=== PATIENT | female | born 1960 ===

== ENCOUNTER 2023-11-17 06:34 | Day surgery (SDC) | payer OTHER ==
[2023-10-30 09:40] LABS: HEMATOCRIT 36.9 % (36.0-45.00); HEMOGLOBIN 12.3 g/dL (12.0-15.00); MEAN CELL VOLUME 95.1 fL (80.00-100.00); MEAN CORPUSCULAR HEMOGLOBIN 31.7 pg (27.00-32.0); MEAN CORPUSCULAR HGB CONC 33.3 g/dl (32.0-36.0); PLATELET COUNT 257 K/uL (150-450); RED BLOOD COUNT 3.88 M/uL (4.00-6.00); RED CELL DISTRIBUTION WIDTH 14.9 % (11.5-14.5); URINE APPEARANCE Clear; URINE BILIRRUBIN Negative (NEGATIVE); URINE BLOOD Negative; URINE COLOR Yellow; URINE GLUCOSE Negative (NEGATIVE); URINE LEUKOCYTE Negative; URINE NITRATE Negative; URINE PROTEIN Negative (NEGATIVE)
[2023-10-30 09:41] LABS: URINE BACTERIA 113.2 uL (0.0-1933); URINE EPITHELIAL CELLS 6.3 uL (0.0-38.8)
[2023-10-30 10:10] LABS: INR 0.97; PARTIAL THROMBOPLASTIN TIME 26.5 SECONDS (22.0-34.0); PROTHROMBIN TIME 10.2 SECONDS (9.0-11.5)
[2023-10-30 10:35] LABS: ALBUMIN 3.8 gm/dL (3.4-5.0); BILIRUBIN TOTAL 0.35 mg/dL (0.3-1.2); CALCIUM 9.3 mg/dL (8.5-10.1); CREATININE SERUM 0.56 mg/dL (0.55-1.02); GFR 109.34; GLOBULINA 3.2 G/DL (2.4-3.5); POTASSIUM 3.82 mEq/L (3.5-5.1)
[~2023-11-17] VITALS: Ht 152.4 cm; Wt 65.8 kg
[~2023-11-17 06:34] MED LIST: COZAAR25 MG PO; GLIMEPIRIDE4 MG; GRALISE600 MG PO; LIPITOR20 MG PO; METFORMIN HCL1000 M2 PO; ZANAFLEX2 M1 PO
== END 2023-11-17 12:45 | disposition home or self-care (01) ==
LOC: CIR.AMB 06:34
PROVIDERS: ATTEND Orthopaedic Surgery Hand Surgery
DX: M66.341 Spontaneous rupture of flexor tendons, right hand (principal); E11.9 Type 2 diabetes mellitus without complications; I10 Essential (primary) hypertension; Z20.822 Contact with and (suspected) exposure to COVID-19